=== PATIENT | male | born 1970 | race Caucasian/White ===

== ENCOUNTER 2018-06-26 15:32 | Emergency (ER) | payer OTHER ==
[~2018-06-26] VITALS: Wt 95.3 kg
[~2018-06-26 15:32] MED LIST: ASPIRIN ADULT L81 M1 PO; AUGMENTIN 875 M1 TAB PO; CLARITIN10 MG PO; KLONOPIN0.5 MG PO; PERCOCET 325 MG1 TA7 PO
[2018-06-26] MEDS ORDERED: IBU800 MG PO (16:32)
== END 2018-06-26 18:05 | disposition home or self-care (01) ==
LOC: ED 15:32
DX: S16.1XXA Strain of muscle, fascia and tendon at neck level, initial encounter (principal); S09.90XA Unspecified injury of head, initial encounter; Z88.8 Allergy status to other drugs, medicaments and biological substances; V43.52XA Car driver injured in collision with other type car in traffic accident, initial encounter; Y93.89 Activity, other specified; Y92.413 State road as the place of occurrence of the external cause; Y99.8 Other external cause status

== ENCOUNTER 2020-11-28 11:08 | Emergency (ER) | payer BC ==
[~2020-11-28] VITALS: Ht 182.8 cm; Wt 100.7 kg
[~2020-11-28 11:08] MED LIST changes: +IBU800 MG PO
== END 2020-11-28 12:03 | disposition home or self-care (01) ==
LOC: ED 11:08
DX: M23.91 Unspecified internal derangement of right knee (principal)

== ENCOUNTER 2024-01-02 20:47 | Emergency (ER) | payer OTHER ==
[~2024-01-02] VITALS: Ht 182.8 cm; Wt 108.0 kg
[2024-01-02] MEDS ORDERED: MELOXICAM15 MG PO (20:58)
[2024-01-02] MEDS ORDERED: LORAZEPAM1 MG PO (20:59)
== END 2024-01-02 21:41 | disposition home or self-care (01) ==
LOC: ED 20:47
DX: M79.662 Pain in left lower leg (principal); F41.9 Anxiety disorder, unspecified; Z86.718 Personal history of other venous thrombosis and embolism; Z88.8 Allergy status to other drugs, medicaments and biological substances; Z79.899 Other long term (current) drug therapy; Z87.442 Personal history of urinary calculi